=== PATIENT | male | born 1960 | race Caucasian/White ===

== ENCOUNTER 2016-05-25 06:05 | Day surgery (SDC) | payer BC ==
[~2016-05-25 06:05] MED LIST: ACETAMINOPHEN 325 MG TABLET PO PRN; DEXAMETHASONE SOD PHOSPHATE 10 MG/ML VIAL IV PRN; MORPHINE SULFATE 10 MG/ML SYRG IV PRN; MORPHINE SULFATE 4 MG/ML SYRG IV PRN; ONDANSETRON HCL/PF 2 MG/ML VIAL IV PRN; RINGERS SOLUTION,LACTATED 1,000 ML IV PRN; ceFAZolin SODIUM 1 GM in DEXTROSE 5 % IN WATER 100 ML IV PRN; oxyCODONE HCL/ACETAMINOPHEN 1 TAB TABLET PO PRN
[2016-05-25] MEDS: OXYMETAZOLINE HCL 150 SPRAY BTL NS PRN ×2 (06:18→07:08)
[2016-05-25] MEDS ORDERED: COCAINE HCL 4 APPL BTL TP ONE (07:20)
[2016-05-25] MEDS ORDERED: MUPIROCIN 22 APPL TUBE TP ONE (07:26)
[2016-05-25] MEDS ORDERED: LIDOCAINE HCL/EPINEPHRINE 30 ML VIAL IJ ONE (07:26)
[2016-05-25 09:42] VITALS: BP 138/81
== END 2016-05-25 06:06 | disposition home or self-care (01) ==
LOC: AMB 06:05
PROVIDERS: ATTEND Allergy & Immunology
PROC: 09BL0ZZ Excision of Nasal Turbinate, Open Approach (ICD-10-PCS; 2016-05-25)
PROC: 09SM0ZZ Reposition Nasal Septum, Open Approach (ICD-10-PCS; principal; 2016-05-25 07:00)
DX: J34.2 Deviated nasal septum (principal); J33.8 Other polyp of sinus